=== PATIENT | male | born 2000 | race Caucasian/White ===

== ENCOUNTER 2022-12-21 09:34 | Inpatient (IN) | payer MEDICAID ==
[~2022-12-21] VITALS: Ht 172.7 cm; Wt 84.8 kg
[2022-12-21 09:41] VITALS: BP 109/79
--- NOTE | 2022-12-21 10:12 | NUR ---
[facility] AT BEDSIDE FOR BLOOD DRAW. PT UNABLE TO PROVIDE URINE AT THIS TIME.
[2022-12-21 10:31] LABS: BASOPHILS % (AUTO) 0.4 % (0.0-2.0); EOSINOPHILS % (AUTO) 0.1 % (0.0-4.0); HEMATOCRIT 44.2 % (36-52); HEMOGLOBIN 15.5 g/dL (12.0-18.0); LYMPHOCYTES # (AUTO) 1.2 K/uL (2.0-11.5); LYMPHOCYTES % (AUTO) 11.4 % (20.5-51.1); MEAN CORPUSCULAR HEMOGLOBIN 30 pg (27-31); MEAN CORPUSCULAR HGB CONC 35 g/dL (33-37); MEAN CORPUSCULAR VOLUME 85.9 fL (80-94); MONOCYTES # (AUTO) 0.8 K/uL (0.8-1.0); MONOCYTES % (AUTO) 7.8 % (1.7-9.3); NEUTROPHILS # (AUTO) 8.3 K/uL (1.8-7.7); NEUTROPHILS % (AUTO) 80.3 % (42.2-75.2); PLATELET COUNT (AUTO) 133 K/uL (140-450); RED BLOOD CELL COUNT(AUTO) 5.14 MIL/uL (4.20-6.10); RED CELL DISTRIBUTION WIDTH 13.2 % (11.6-13.7); WHITE BLOOD COUNT (AUTO) 10.4 K/uL (4.8-10.8)
[2022-12-21 10:33] LABS: ALBUMIN 4.1 g/dL (3.4-5.0); ANION GAP 14.3 (8-16); CARBON DIOXIDE 27.6 mmol/L (21-32); CREATININE 1.1 mg/dL (0.6-1.3); POTASSIUM 3.9 mmol/L (3.5-5.1); TOTAL BILIRUBIN 1.9 mg/dL (0.0-1.0)
[2022-12-21] MEDS ORDERED: MORPHINE SULFATE 4 MG/ML SYR IVP ONE ×2 (10:40→12:55)
--- NOTE | 2022-12-21 11:15 | NUR ---
[facility] AT BEDSIDE
--- NOTE | 2022-12-21 11:21 | NUR ---
[facility] AT BEDSIDE, TRANSPORT TO [place] FOR CT
--- NOTE | 2022-12-21 12:44 | NUR ---
PT BACK FROM [place], CONNECTED TO CARDIAC/O2 MONITOR
--- NOTE | 2022-12-21 12:50 | NUR ---
PT BACK FROM [place].
--- NOTE | 2022-12-21 13:04 | NUR ---
COVID SWAB COLLECTED AND SENT TO LAB
[2022-12-21] MEDS ORDERED: ceFAZolin 1,000 MG VIAL ONE (13:11)
[2022-12-21 13:15] LABS: APPEARANCE,URINE CLEAR (CLEAR); BILIRUBIN,URINE NEGATIVE (NEGATIVE); BLOOD, URINE NEGATIVE (NEGATIVE); COLOR,URINE YELLOW (YELLOW); LEUKOCYTE ESTERASE ,URINE NEGATIVE (NEGATIVE); NITRITE, URINE NEGATIVE (NEGATIVE); PH,URINE 6.5 (5.0-9.0); UGLUCOSE NEGATIVE (NEGATIVE)
--- NOTE | 2022-12-21 13:18 | NUR ---
XR DONE AT BEDSIDE
[2022-12-21] MEDS: NACL 0.9% 1,000 ML IV SCH ×2 (13:28→17:30)
--- NOTE | 2022-12-21 14:50 | NUR ---
AGUSTIN CATHERINE FROM OR AT BEDSIDE
[2022-12-21] MEDS ORDERED: BUPIVACAINE-MPF/EPI 0.25% 30 ML VIAL INJ ONE (14:53)
[2022-12-21] MEDS ORDERED: LIDOCAINE 1% 500 MG/50 ML VIAL ONE (14:54)
--- NOTE | 2022-12-21 14:56 | NUR ---
Patient will be admitted to care of DR CHRISTIANSEN. Admited to [facility]. Will go to OR FOR SX. Belongings list completed. 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
[2022-12-21] MEDS ORDERED: PROPOFOL 200 MG/20 ML VIAL IV ONE ×2 (15:40→15:42)
[2022-12-21] MEDS ORDERED: SUGAMMADEX SODIUM 200 MG/2 ML VIAL IV ONE ×2 (15:40→16:14)
[2022-12-21] MEDS ORDERED: DEXAMETHASONE 4 MG/ML VIAL ONE ×2 (15:40→16:08)
[2022-12-21] MEDS ORDERED: KETOROLAC 30 MG/ML VIAL ONE ×2 (15:40→16:02)
[2022-12-21] MEDS ORDERED: ONDANSETRON 4 MG/2 ML VIAL ONE ×2 (15:40→16:02)
[2022-12-21] MEDS ORDERED: ROCURONIUM 50 MG/5 ML VIAL IV ONE ×2 (15:40→16:14)
[2022-12-21] MEDS ORDERED: SUCCINYLCHOLINE CHLORIDE 200 MG/10 ML VIAL IVP ONE ×2 (15:40→15:42)
[2022-12-21] MEDS ORDERED: HYDROmorphone PFS 2 MG/ML SYR ONE ×2 (15:40→15:58)
[2022-12-21] MEDS ORDERED: HYDROmorphone 1 MG/ML AMP IVP PRN ×2 (15:45→15:55)
[2022-12-21] MEDS ORDERED: fentaNYL citrate 0.05 MG/ML VIAL ONE (15:50)
[2022-12-21] MEDS ORDERED: ONDANSETRON 4 MG/2 ML VIAL IVP PRN (15:55)
--- NOTE | 2022-12-21 17:00 | NUR ---
RECEIVED PATIENT FROM OR, STABLE, AWAKE AND ORIENTED. MONITORING OF VITALS INITIATED.
--- NOTE | 2022-12-21 19:20 | NUR ---
ENDORSED PATIENT OT PM SHIFT NURSE FOR CONTINUATION OF CARE.
--- NOTE | 2022-12-21 19:25 | NUR ---
RECEIVED PATIENT FROM AM NURSE FOR CONTINUITY OF CARE. PT IS STABLE
[2022-12-21 20:00] VITALS: BP 112/54
--- NOTE | 2022-12-22 01:00 | NUR ---
PATIENT ASLEEP, NO DISTRESS NOTED
[2022-12-22] MEDS: HYDROcodone/APAP 5/325 MG 1 TAB TAB PO PRN ×2 (03:46→11:30)
[2022-12-22 04:00] VITALS: BP 120/58
--- NOTE | 2022-12-22 07:17 | NUR ---
ENDORSED PATIENT TO AM NURSE FOR CONTINUITY OF CARE. PT IS STABLE
--- NOTE | 2022-12-22 07:20 | NUR ---
RECEIVED PATIENT FROM PM NURSE FOR CONTINUATION OF CARE. SEEN PATIENT ON BED, ASLEEP, NORMAL RISE AND FALL OF CHEST. PATIENT MONITORING AND CARE RESUMED.
[2022-12-22 08:00] VITALS: BP 116/68
[2022-12-22] MEDS: NACL 0.9% 1,000 ML IV SCH (09:20)
--- NOTE | 2022-12-22 09:48 | NUR ---
PATIENT HAS BEEN SCREENED AND CATEGORIZED HIGH NUTRITION RISK. PATIENT WILL BE SEEN WITHIN 1-2 DAYS OF ADMISSION. 12/21/22-12/23/[address] REFERRAL RECEIVED FOR VOMITING > 3 DAYS.
[2022-12-22 12:00] VITALS: BP 110/69
--- NOTE | 2022-12-22 15:35 | NUR ---
12/22/22 RD INITIAL ASSESSMENT COMPLETED. PLEASE REFER TO NUTRITION ASSESSMENT UNDER CARE ACTIVITY FOR ESTIMATED NUTRITIONAL NEEDS. 1. CONTINUE REGULAR DIET TOLERATED 2. MONITOR PO INTAKE 3. RD TO FOLLOW-UP 3-5 DAYS, MODERATE RISK MICAH JOHNSON RD
[2022-12-22 16:00] VITALS: BP 116/70
[2022-12-22 17:24] VITALS: BP 110/69
--- NOTE | 2022-12-22 19:22 | NUR ---
ENDORSED PATIENT TO PM SHIFT FOR CONTINUATION OF CARE.
== END 2022-12-22 19:17 | disposition home or self-care (01) | DRG 234 ==
LOC: MED 09:34 → MMU 13:21 → MTU 14:16
PROVIDERS: ADMIT Family Medicine; ATTEND Family Medicine
PROC: 0DTJ4ZZ Resection of Appendix, Percutaneous Endoscopic Approach (ICD-10-PCS; principal; 2022-12-21 14:45)
DX: K35.80 Unspecified acute appendicitis (principal); D69.6 Thrombocytopenia, unspecified; Z20.822 Contact with and (suspected) exposure to COVID-19
CPT/HCPCS: 36415; 71045; 80053; 81003; 83690; 85025; J0330; J0690; J1100; J1170; J1885; J2001; J2270; J2405; J2704; J3010; J3490

== ENCOUNTER 2022-12-25 14:11 | Emergency (ER) | payer MEDICAID ==
[~2022-12-25] VITALS: Ht 170.2 cm; Wt 72.6 kg
[2022-12-25 14:59] VITALS: BP 132/74
[2022-12-25] MEDS ORDERED: ACET-10509 PO (15:23)
[2022-12-25] MEDS ORDERED: AMOX-1230 PO (15:23)
[2022-12-25 16:55] VITALS: BP 110/62
--- NOTE | 2022-12-25 16:58 | NUR ---
TORRIE HAD LEFT LOWER ABD DRESSING WITH NO BLEEDING
== END 2022-12-25 16:55 | disposition home or self-care (01) ==
LOC: MED 14:11
DX: T81.49XA Infection following a procedure, other surgical site, initial encounter (principal); Z90.49 Acquired absence of other specified parts of digestive tract; Z79.899 Other long term (current) drug therapy; Z79.2 Long term (current) use of antibiotics
CPT/HCPCS: 99283